=== PATIENT | female | born 1945 | race Caucasian/White ===

== ENCOUNTER 2022-09-30 17:20 | Outpatient (CLI) | payer OTHER ==
--- NOTE | 2022-10-01 11:14 | XRAY Report ---
PROCEDURE: Wrist 3 View RT INDICATIONS: R WRIST PX TECHNIQUE: 3 views of the wrist were acquired. COMPARISON: None FINDINGS: Bones: Severe degenerative changes of the first carpometacarpal joint. Degenerative changes of the di stal radioulnar joint. No fracture or dislocation. Soft tissues: No suspicious soft tissue calcifications. IMPRESSION: Severe degenerative changes of the first carpometacarpal joint consistent with osteoarthritis. No fra cture. Reviewed by: Travis Pang on 10/01/2022 11:13 AM [facility] Approved by: Travis Pang on 10/01/2022 11:13 AM [facility] Station ID: [id number]
--- NOTE | 2022-10-01 11:16 | XRAY Report ---
PROCEDURE: Hand 3 View RT INDICATIONS: R HAND PX TECHNIQUE: 3 views of the hand(s) acquired. COMPARISON: None FINDINGS: Bones: Degenerative changes of the interphalangeal joints most severely involving the third finger DI P joint, the fourth finger PIP joint, and the fifth finger PIP joint which have severe joint space na rrowing, osteophytes, subchondral sclerosis, and subchondral erosions. Severe degenerative changes of the first carpometacarpal joint. Degenerative changes of the distal radioulnar joint. No fracture or dislocation. Soft tissues: No suspicious soft tissue calcifications. IMPRESSION: 1.Severe degenerative changes of the first carpometacarpal joint and interphalangeal joints as detail ed above consistent with osteoarthritis. 2.No fracture. Reviewed by: Travis Pang on 10/01/2022 11:15 AM [facility] Approved by: Travis Pang on 10/01/2022 11:15 AM [facility] Station ID: [id number]
== END 2022-09-30 23:59 | disposition home or self-care (01) ==
LOC: DI.N 17:20
PROVIDERS: ATTEND Physician Assistant
DX: M19.041 Primary osteoarthritis, right hand (principal)